=== PATIENT | male | born 1960 ===

== ENCOUNTER → 2017-02-21 | Outpatient (CLI) | payer OTHER | END | disposition home or self-care (01) | LOC: GMA 11:27 | PROVIDERS: ATTEND Family Medicine | DX: R53.82 Chronic fatigue, unspecified (principal) ==

== ENCOUNTER 2017-04-13 16:28 | Emergency (ER) | payer OTHER ==
[2017-04-13 16:42] VITALS: BP 145/81; TEMP 98.3; O2SAT 95
[2017-04-13] MEDS ORDERED: CHLORHEXIDINE GLUCONATE 4 % 15 ML UD TOP ONE (16:44)
[2017-04-13] MEDS ORDERED: LIDOCAINE 1% 10 ML VIAL INJ ONE (16:53)
[2017-04-13] MEDS ORDERED: NEOMYCIN-BACITRACIN-POLYMYXIN 0.9 GM UD TOP ONE (16:53)
--- NOTE | 2017-04-13 17:35 | ED.PDOC ---
History of Present Illness - General Chief Complaint: Laceration Stated Complaint: finger laceration Time Seen by Provider: 04/13/17 16:40 Source: patient, RN notes reviewed, Vital Signs reviewed Exam Limitations: no limitations - History of Present Illness Initial Comments: Patient presents to ER with laceration to his left index finger. He accidentally cut himself with a dirty hunting knife. Timing/Duration: just prior to arrival Severity: moderate Location: hands Improving Factors: rest - & pressure Worsening Factors: movement Associated Symptoms: denies symptoms Review of Systems - Review of Systems Constitutional: States: no symptoms reported Respiratory: States: no symptoms reported Cardiology: States: no symptoms reported Musculoskeletal: States: no symptoms reported Skin: States: see HPI Neurological: States: no symptoms reported. Denies: numbness, paresthesia, tingling All other Systems: No Change from Baseline Past Medical History (General) - Patient Medical History Hx Seizures: No Hx Stroke: No Hx of COPD: No Hx Cardiac Disorders: No Hx Congestive Heart Failure: No Hx Pacemaker: No Hx Diabetes: No Hx MRSA: Yes - Leg 2016 MRSA Source:: Wound Surgical History: other - Vaccination History Hx Tetanus, Diphtheria Vaccination: Yes - 2014 Family Medical History - Family History Mother Family History: Unknown Physical Exam - Physical Exam General Appearance: Alert, Comfortable, No apparent distress, Well Developed, Well Groomed, Well Hydrated, Well Nourished Cardiovascular/Chest: normal peripheral pulses - with brisk capillary refill distal L index finger Respiratory: no respiratory distress Extremity: normal range of motion Neurologic: no motor/sensory deficits - normal sensation to light touch distal to finger laceration, alert, normal mood/affect, oriented x 3 Skin Exam: warm/dry, normal color Skin Problem Location: upper extremities - L index finger over dorsal & lateral aspect of DIP joint Skin Character: linear - 2.5cm laceration Comments: Vital Signs 04/13/17 16:38 Temperature 98.3 F Pulse Rate [ 68 right brachial] Respiratory 16 Rate Blood Pressure 145/81 [right brachial ] O2 Sat by Pulse 95 Oximetry Procedures - Laceration/Wound Repair Left Lateral Distal Dorsal Finger Wound Length (cm): 2.5 Wound's Depth, Shape: superficial, linear Wound Explored: clean Irrigated w/ Saline (cc's): 0 - soaked in Hibiclens & saline for 15 minutes. Betadine Prep?: Yes Anesthesia: 1% Lidocaine Volume Anesthetic (cc's): 2 Wound Debrided: minimal Wound Repaired With: sutures Suture Size/Type: 4:0, prolene Number of Sutures: 5 Layer Closure?: No Sterile Dressing Applied?: Yes Splint Applied?: No Sling Applied?: No Departure - Departure Clinical Impression: Accidental laceration Laceration of left index finger w/o foreign body w/o damage to nail Qualifiers: Encounter type: initial encounter Qualified Code(s): S61.211A - Laceration without foreign body of left index finger without damage to nail, initial encounter Time of Disposition: 17:37 Disposition: Discharge to Home or Self Care Condition: Good Departure Forms: ED Discharge - Pt. Copy, Patient Portal Self Enrollment Instructions: DI for Laceration Repair -- Simple Diet: resume usual diet Activity: increase activity as tolerated Referrals: Hans Toney III, MD [Primary Care Provider] - 1-2 Weeks Additional Instructions: Keep clean and dry Apply antibiotic ointment at least twice daily Suture removal in 7-10 days
== END 2017-04-13 18:00 | disposition home or self-care (01) ==
LOC: ER 16:28
DX: S61.211A Laceration without foreign body of left index finger without damage to nail, initial encounter (principal); W26.0XXA Contact with knife, initial encounter; Y92.9 Unspecified place or not applicable

== ENCOUNTER → 2019-11-22 | Outpatient (CLI) | payer OTHER ==
--- NOTE | 2019-11-22 13:20 | RAD ---
4 radiographs right knee Indication: PAIN IN RIGHT KNEE Comparison: None. Impression: Severe narrowing medial knee compartment with moderate narrowing lateral and patellofemoral compartments. Tiny joint line osteophytes. Small knee effusion. No acute fracture. Electronically signed by: Andrew Angeles MD 11/22/2019 1:19 PM CDT
--- NOTE | 2019-11-22 13:21 | RAD ---
EXAM DESCRIPTION: Pelvis CLINICAL HISTORY: 59 years Male, PAIN IN RIGHT HIP COMPARISON: None. TECHNIQUE: Single view radiograph of the pelvis. IMPRESSION: Partially obscured sacrum and coccyx by overlying bowel. No acute displaced fracture. No dislocation. 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 Lumbar spondylosis. Pubic joints intact. Electronically signed by: Deng Abdalla MD 11/22/2019 1:19 PM CDT
== END ==
LOC: RAD 10:22
PROVIDERS: ATTEND Orthopaedic Surgery
DX: M16.0 Bilateral primary osteoarthritis of hip (principal); M47.896 Other spondylosis, lumbar region; M25.761 Osteophyte, right knee; M25.461 Effusion, right knee; M25.861 Other specified joint disorders, right knee